=== PATIENT | female | born 1995 | race American Indian/Alaskan Native ===

== ENCOUNTER 2018-08-16 20:44 | Emergency (ER) | payer OTHER ==
[2018-08-16 20:57] VITALS: BP 118/67
[2018-08-16] MEDS ORDERED: HYDROGEN PEROXIDE ONE (21:22)
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
== END 2018-08-16 21:56 | disposition home or self-care (01) ==
LOC: ED 20:44
DX: S61.217A Laceration without foreign body of left little finger without damage to nail, initial encounter (principal); S80.812A Abrasion, left lower leg, initial encounter; S80.811A Abrasion, right lower leg, initial encounter; S60.511A Abrasion of right hand, initial encounter; J45.909 Unspecified asthma, uncomplicated; Z90.89 Acquired absence of other organs; V49.59XA Passenger injured in collision with other motor vehicles in traffic accident, initial encounter; Y93.89 Activity, other specified; Y92.410 Unspecified street and highway as the place of occurrence of the external cause; Y99.8 Other external cause status